=== PATIENT | female | born 1945 | race Caucasian/White ===

== ENCOUNTER 2018-09-16 14:23 | Emergency (ER) | payer MEDICARE, BC ==
--- NOTE | 2018-09-16 14:30 | UC ---
Cardiac HPI - History of Current Complaint Stated Complaint: chest pain Time Seen by Provider: 09/16/18 14:29 PMH/Surg Hx/FS Hx/Imm Hx - Surgical History Surgical History: Unable to Obtain/Confirm Discharge - Discharge Plan Referrals: Farooq Daniel MD [Primary Care Provider] -
[2018-09-16 14:37] VITALS: BP 142/75
[2018-09-16] MEDS ORDERED: Aspirin 81 mg CHEW TAB* 81 MG TAB.CHEW ONE (14:42)
--- NOTE | 2018-09-16 14:44 | UC ---
Cardiac HPI - HPI Summary HPI Summary: Pt presents to report 3 days of ongoing chest pain. Pt states today had radiation to left side of neck, left arm, felt sob with walking and fatigue. mild nause, no vomiting. no cough. no fever, chills, rash. No h.o similar. Pt with h/o htn. No tobacco, no cardiac family hx. No cholesterol. no analgsia taken pt drove self to UC pts medications reviewed this visit - History of Current Complaint Chief Complaint: UCChestPain Stated Complaint: chest pain Time Seen by Provider: 09/16/18 14:29 Hx Obtained From: Patient Onset/Duration: Gradual Onset, Lasting Days - 3 Pain Intensity: 8 - Allergy/Home Medications Allergies/Adverse Reactions: Allergies Allergy/AdvReac Type Severity Reaction Status Date / Time codeine Allergy Unknown Verified 09/16/18 14:38 Reaction Details scallops Allergy Difficulty Verified 09/16/18 15:34 Breathing Home Medications: Home Medications Amlodipine Besylate [Norvasc 10 mg tab] 10 mg PO DAILY 09/16/18 [History Confirmed 09/16/18] PMH/Surg Hx/FS Hx/Imm Hx Previously Healthy: Yes Cardiovascular History: Hypertension - Surgical History Surgical History: Unable to Obtain/Confirm - Family History Known Family History: Positive: Hypertension Negative: Cardiac Disease - Social History Alcohol Use: Occasionally Substance Use Type: None Smoking Status (MU): Never Smoked Tobacco Review of Systems All Other Systems Reviewed And Are Negative: Yes Constitutional: Positive: Negative Respiratory: Positive: Shortness Of Breath Cardiovascular: Positive: Chest Pain Gastrointestinal: Positive: Nausea Physical Exam - Summary Physical Exam Summary: Vital Signs Reviewed: Yes A+Ox3, no distress Eyes: Conjunctiva Clear, GURU. EOM intact and full ENT: Hearing grossly normal TM x 2 clear, mmoist, uvula midline, no exudate, no erythema Neck: Positive: Supple, no bruits Respiratory: Positive: No respiratory distress, No accessory muscle use + CTA throughout no w/r Cardiovascular: RRR nl s1, s2 no m/r CBT <2 sec, no reproducible pain abd soft + BS nt/nd no guarding, no distension Musculoskeletal Exam: JUÁREZ x 4 without difficulty Strength Intact, ROM Intact Neurological: Positive: Alert, + sensation throughout Psychological: Positive: Normal Response To Family Skin: Positive: no rash, no ecchymosis Triage Information Reviewed: Yes Vital Signs: Initial Vital Signs Temp 98.2 F 09/16/18 14:35 Pulse 94 09/16/18 14:35 Resp 24 09/16/18 14:35 BP 142/75 09/16/18 14:35 Pulse Ox 95 09/16/18 14:35 - Assessment/Plan Course Of Treatment: Pt present with chest pressure x 3 days, pain to left arm, left neck today + SOB + nausea. pt denies fevers, chills Pt without h/o similar. No change with activity. d/w pt at length - recommend ED by EMS for further eval - pt in agreement. Will give ASA, hep loc, oxygen. providers inthe eD not available to come to phone for report - given to Meme castro RN - Clinical Impression Provider Diagnosis: Chest pain Discharge - Sign-Out/Discharge Documenting (check all that apply): Patient Departure All imaging exams completed and their final reports reviewed: No Studies - Discharge Plan Condition: Stable Disposition: TRANS HIGHER LVL OF CARE FAC Referrals: Farooq Daniel MD [Primary Care Provider] - - Billing Disposition and Condition Condition: STABLE Disposition: Trans Higher Lvl of Care Fac
[2018-09-17] MEDS ORDERED: Aspirin 81 mg CHEW TAB* 81 MG TAB.CHEW PO ONE (14:41)
== END 2018-09-16 14:55 | disposition short-term general hospital (02) ==
LOC: UCEAST 14:23
DX: R07.9 Chest pain, unspecified (principal); I10 Essential (primary) hypertension; Z88.5 Allergy status to narcotic agent; Z91.013 Allergy to seafood
CPT/HCPCS: 93005; 99213; A9270-GY; G0463

== ENCOUNTER 2018-09-16 15:17 | Emergency (ER) | payer MEDICARE, BC ==
--- NOTE | 2018-09-16 15:33 | ED ---
HPI Chest Pain - HPI Summary HPI Summary: This pt is a 73 y/o female presenting to [facility] [place] from [facility] for chest pain x3 days, worsening today. Pt reports her chest pain began 3 days ago but worsened significantly today. She states she has mid sternal chest pain radiating into her jaw, neck, and arm that is described as pressure and " someone sitting on my chest." She notes that at onset of chest pain pt is at rest. Pt states today with episode of chest pain it was harder to breathe, had SOB, and became diaphoretic. Denies nausea, vomiting, weakness, numbness, tingling. She went to Urgent Care where she was given aspirin and advised to come to the ED via EMS. 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 Prior to taking nitroglycerin pt rated her pain 8/10 in severity and after nitroglycerin she rates her pain 4 or 5 out of 10 in severity. PMHx: HTN, dyslipidemia, UC. Pt states she does not take her high cholesterol medications because it makes her UC worse. Denies cardiac hx. Her last chemical stress test was more than [address] Joyner. - History of Current Complaint Time Seen by Provider: 09/16/18 15:22 Hx Obtained From: Patient Onset/Duration: Started Days Ago - 3, Still Present Timing: Lasting Days - 3 Current Severity: Moderate Pain Intensity: 5 Chest Pain Location: Mid Sternal Chest Pain Radiates: Yes Chest Pain Radiates To:: Arm, Jaw, Neck Character: Pressure/Squeezing - Pressure, "someone sitting on chest" Aggravating Factor(s): Nothing Alleviating Factor(s): Nothing Associated Signs and Symptoms: Positive: Chest Pain, Dizziness, Shortness of Breath, Diaphoresis. Negative: Numbness, Tingling, Weakness, Fever, Chills, Nausea, Vomiting - Allergy/Home Medications Allergies/Adverse Reactions: Allergies Allergy/AdvReac Type Severity Reaction Status Date / Time codeine Allergy Unknown Verified 09/16/18 14:38 Reaction Details scallops Allergy Difficulty Verified 09/16/18 15:34 Breathing Home Medications: Home Medications Docusate Sodium [Colace] 1 cap PO DAILY 09/16/18 [History Confirmed 09/16/18] L.acidoph,Paracasei, B.lactis [Probiotic] 1 cap PO DAILY 09/16/18 [History Confirmed 09/16/18] Mesalamine 4 tab PO QAM 09/16/18 [History Confirmed 09/16/18] PMH/Surg Hx/FS Hx/Imm Hx Cardiovascular History: Reports: Hx Hypercholesterolemia, Hx Hypertension GI History: Reports: Other GI Disorders - Ulcerative Colitis - Cancer History Hx Chemotherapy: No Hx Radiation Therapy: No - Family History Known Family History: Positive: Cardiac Disease - Father with MT in his 70s - Social History Alcohol Use: Occasionally Substance Use Type: Reports: None Smoking Status (MU): Never Smoked Tobacco Review of Systems Positive: Skin Diaphoresis. Negative: Fever, Chills Positive: Chest Pain Positive: Shortness Of Breath Negative: Vomiting, Nausea Neurological: Other - POSITIVE: dizziness Negative: Weakness, Paresthesia, Numbness All Other Systems Reviewed And Are Negative: Yes Physical Exam - Summary Physical Exam Summary: VITAL SIGNS: Reviewed. GENERAL: Patient is a well-developed and nourished female who is lying comfortable in the stretcher. Patient is not in any acute respiratory distress. HEAD AND FACE: No signs of trauma. No ecchymosis, hematomas or skull depressions. No sinus tenderness. EYES: PERRLA, EOMI x 2, No injected conjunctiva, no nystagmus. EARS: Hearing grossly intact. Ear canals and tympanic membranes are within normal limits. MOUTH: Oropharynx within normal limits. NECK: Supple, trachea is midline, no adenopathy, no JVD, no carotid bruit, no c- spine tenderness, neck with full ROM. CHEST: Symmetric, no tenderness at palpation LUNGS: Clear to auscultation bilaterally. No wheezing or crackles. CVS: Regular rate and rhythm, S1 and S2 present, no murmurs or gallops appreciated. ABDOMEN: Soft, non-tender. No signs of distention. No rebound, no guarding, and no masses palpated. Bowel sounds are normal. EXTREMITIES: FROM in all major joints, no edema, no cyanosis or clubbing. NEURO: Alert and oriented x 3. No acute neurological deficits. Speech is normal and follows commands. SKIN: Dry and warm Triage Information Reviewed: Yes Vital Signs Reviewed: Yes Diagnostics - Laboratory Result Diagrams: 09/16/18 16:07 09/16/18 16:07 Lab Statement: Any lab studies that have been ordered have been reviewed, and results considered in the medical decision making process. - Radiology Chest XR Radiology Interpretation Completed By: Radiologist Summary of Radiographic Findings: IMPRESSION: No active cardiopulmonary disease is noted. Dr. Foster has reviewed this report. - EKG 15:45 Cardiac Rate: NL - at 81 bpm EKG Rhythm: Sinus Rhythm EKG Comparison: No Significant Change - from prior EKG on 09/16/18 Summary of EKG Findings: No ST elevations. Re-Evaluation - Re-Evaluation First Eval Re-Evaluation Time: 18:35 Comment: Pt does not want to be admitted at this time. She would like to sign against medical advice. Chest Pain Course/Dx - Course Assessment/Plan: This pt is a 73 y/o female presenting to [facility] via EMS from [facility] for chest pain x3 days, worsening today. Pt reports her chest pain began 3 days ago but worsened significantly today. She states she has mid sternal chest pain radiating into her jaw, neck, and arm that is described as pressure and "someone sitting on my chest." She notes that at onset of chest pain pt is at rest. Pt states today with episode of chest pain it was harder to breathe, had SOB, and became diaphoretic. Denies nausea, vomiting, weakness, numbness, tingling. She went to Urgent Care where she was given aspirin and advised to come to the ED via EMS. 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 Prior to taking nitroglycerin pt rated her pain 8/10 in severity and after nitroglycerin she rates her pain 4 or 5 out of 10 in severity. PMHx: HTN, dyslipidemia, UC. Pt states she does not take her high cholesterol medications because it makes her UC worse. Denies cardiac hx. Her last chemical stress test was more than [address] Joyner. Blood work without any significant abnormality,. EKG shows normal sinus rhythm with no ST elevation. Chest x-ray shows no acute pathology. In the ambulance transfer to the ED the patient was given nitroglycerin and the patients symptoms have significantly improved. Because of her comorbidities I discussed my physical exam and findings with the patient and the need for admission. She agrees. I discussed my physical exam and findings with Dr. Boogie, from the hospitalist services, who accepted the patient for admission to rule out acute coronary syndrome. Patient is hemodynamically stable, alert oriented 3. Right before the patient was admitted, the patient changed her mind of her stay in the hospital since she doesn't have anybody to do the peritoneal dialysis for her . Initially they had a nurse who was transferred to do the peritoneal dialysis however she reported that she is not trained therefore she has no one to do it. She will be signing AGAINST MEDICAL ADVICE. The patient's daughter agrees with this decision. I extensively discussed with the patient the benefits and risk of leaving AMA. I also discussed the alternatives to leaving AMA, however, the patient still insists to leave the hospital AMA. The patient is clinically sober, free from distracting injury, appears to have intact insight and judgment and reason and in my opinion has the capacity to make decisions. Patient has full capacity and is cognitively intact. The patient presents with ACS symptoms, I have explained that I am concerned with those symptoms and may represent ACS. The patient verbalizes the understanding of my concerns. I have also explained the results of the labs even though they are normal. The primary nurse and the charge nurse also strongly recommended that the patient should not leave AMA. Patient understands the risk of leaving AMA, which includes but is not restricted to . Patient signed the AMA form. Patient was also advised to return to ED if she changes her mind or if the symptoms worsen or other symptoms appear. Patient understands and agrees. Again, I discussed all the findings and test results with the patient. Patient was instructed to return to the emergency room immediately if any of the symptoms return or worsens. Plan of care was discussed with the patient and she understands and agrees. All questions were answered at patient satisfaction. There were no further complaints or concerns. Patient signed AMA and she was discharged AMA. - Chest Pain Differential Diagnosis/HQI/PQRI: Acute MT, ACS, Angina, CHF, Chest Wall, GI Disease, Lower Respiratory Infection, Pulmonary Edema - Diagnoses Provider Diagnoses: Chest pain - Provider Notifications Discussed Care Of Patient With: Suellen Boogie - hospitalist Time Discussed With Above Provider: 17:06 Instructed by Provider To: Admit As Inpatient Discharge - Sign-Out/Discharge Documenting (check all that apply): Patient Departure - Admit to [facility] - Discharge Plan Condition: Stable Disposition: AGAINST MEDICAL ADVICE Patient Education Materials: Chest Pain (ED) Referrals: Farooq Daniel MD [Primary Care Provider] - Vishal Banuelos MD [Medical Doctor] - Additional Instructions: PLEASE FOLLOW UP WITH DR. BANUELOS, PUBLICITY AGENT. RETURN TO THE ED FOR ANY NEW OR WORSENING SYMPTOMS. - Billing Disposition and Condition Condition: STABLE Disposition: Against Medical Advice - Attestation Statements Document Initiated by Jessicaibe: Yes Documenting Scribe: Renee Saxena Provider For Whom Scribe is Documenting (Include Credential): Wisam Foster MD Scribe Attestation: Renee Novak, scribed for Wisam Foster MD on 09/16/18 at 1909. Scribe Documentation Reviewed: Yes Provider Attestation: The documentation as recorded by the Renee hernandez accurately reflects the service I personally performed and the decisions made by , Wisam Foster MD Status of Scribe Document: Viewed
[2018-09-16 16:14] LABS: ABS Basophils 0 10^3/ul (0-0.2); ABS Eosinophils 0.1 10^3/ul (0-0.6); ABS Lymphocytes 1.4 10^3/ul (1.0-4.8); ABS Monocytes 0.7 10^3/ul (0-0.8); ABS Neutrophils 3.4 10^3/ul (1.5-7.7); ABS Nucleated RBC 0 10^3/ul; Eosinophil % 2.2 %; Hematocrit 39 % (35-47); Hemoglobin 13.2 g/dl (12.0-16.0); Lymphocyte % 25.1 %; Mean Corpuscular HGB Conc 34 g/dl (31-36); Mean Corpuscular Hemoglobin 32 pg (27-31); Mean Corpuscular Volume 92 fL (80-97); Mean Platelet Volume 9.1 fL (7.4-10.4); Nucleated Red Blood Cells % 0.1; Platelet Count 224 10^3/ul (150-450); Red Cell Distribution Width 13 % (10.5-15); White Blood Count 5.6 10^3/ul (3.5-10.8)
[2018-09-16 16:31] LABS: Albumin/Globulin Ratio 1.7 (1-3); BUN/Creatinine Ratio 20.8 (8-20); Calcium 9.1 mg/dL (8.6-10.3); EGFR African American 88.9 (>60); EGFR Non-African American 73.5 (>60); Globulin 2.4 g/dL (2-4); Magnesium 2.1 mg/dL (1.9-2.7); Potassium 4.1 mmol/L (3.5-5.0); Total Bilirubin 0.6 mg/dL (0.2-1.0); Total Protein 6.4 g/dL (6.4-8.9)
[2018-09-16 16:33] LABS: Troponin I 0.01 ng/mL (<0.04)
[2018-09-16 16:49] LABS: TSH (Thyroid Stimulating Horm) 1.6 mcIU/mL (0.34-5.60)
[2018-09-16 18:59] VITALS: BP 144/73
--- NOTE | 2018-09-17 07:09 | CONS ---
[facility] MEDICINE CONSULTATION REPORT: DATE OF CONSULT: 09/16/18 PROVIDER: Maxine Burrell NP. ATTENDING PHYSICIAN: Dr. Foster EMERGENCY ROOM CONSULTING PHYSICIAN: Suellen oBogie DO (dictated by Maxine Burrell NP). REASON FOR CONSULT: Chest pain. HISTORY OF PRESENT ILLNESS: Ms. Barton is a 73-year-old female with a past medical history significant for hypertension, ulcerative colitis who reports to the emergency room with chest pain and shortness of breath. The patient reports that she started developing chest pain approximately 3 days ago; the pain radiated between her shoulder, around her abdomen to her left upper arm and left neck. She reports the pain as being pressure and sharp. She does also reports this is worse with deep breath. This morning with the development of the chest pain, she was diaphoretic and developed shortness of breath today. Due to these symptoms, the patient presented to the emergency room for further evaluation. She does report that she has had cough x1 month that has been viral and has been progressively improving over the past month. She denies any recent fever or anorexia. She does report chest pain, denies any edema, does report cough, denies any hemoptysis. She does report shortness of breath, denies any nausea, vomiting and diarrhea. She does report diaphoresis with her chest pain. Denies any abdominal pain. Denies any hematuria or dysuria. She denies any focal weakness or sensory loss. Denies any visual complaints, dysphagia. She does report chronic joint aches. Denies any rashes , lesions or open sores. Denies any psychosis or anxiety. Due to her complaint of chest pain and history and current symptoms, we were asked to see and evaluate her for admission. PAST MEDICAL HISTORY: Significant for hypertension and ulcerative colitis. PAST SURGICAL HISTORY: 1. Bilateral knee replacements. 2. Right toe surgery. 3. Tonsillectomy. 4. Tubal ligation. HOME MEDICATIONS: 1. Norvasc 10 mg p.o. daily. 2. Docusate 1 cap p.o. daily. 3. Mesalamine 4 tabs p.o. q.a.m. 4. Probiotic 1 cap p.o. daily. 5. Turmeric daily. ALLERGIES: She is allergic to CODEINE, SCALLOPS, and STATINS. FAMILY HISTORY: Father with a history of MO at age 72, grandfather MO at age 75. Father with history of diabetes, stomach and prostate cancer were prevalent in her family. SOCIAL HISTORY: She quit smoking approximately 30 years ago. Prior to that, she smoked 3 packs a day for 27 years. She does report occasional alcohol use. Denies any illicit drug use. She is . She lives with her . Surrogate decision maker in the event she is unable to make her own decision is her daughter, Olya. She is a full code. REVIEW OF SYSTEMS: General: There was no fever, no unintended weight loss. She does report chest pain associated with shortness of breath that radiates to her back, left shoulder and left upper arm and left neck. She denies any nausea , vomiting, or diarrhea. Denies any abdominal pain. Denies any gross hematuria or dysuria. Denies any focal weakness or sensory loss. Denies any visual complaints, dysphagia or arthralgias. She does report chronic joint aches. Denies any rashes or lesions psychosis or anxiety. PHYSICAL EXAM: Vital Signs: Blood pressure 155/75, heart rate 86, respirations 16, O2 saturation 96%, temperature was 98.5. General: Ms. Barton is a 73-year-old female. She is sitting on the stretcher in the emergency room. She is alert and oriented x3. She does not appear to be in any acute distress. HEENT: Head is atraumatic and normocephalic. Eyes: EOMs are intact. Sclerae anicteric and not pale. Oral mucosa appears to be moist. Neck is supple. Lungs are clear to auscultation bilaterally. No wheezes, rales or rhonchi. Cardiac: S1 and S2. Regular rate and rhythm. No murmurs rubs or gallops. Abdomen is obese, round, soft and nontender. Bowel sounds are present x4. Extremities: Pedal pulses are +2 bilaterally. There is no lower extremity edema. She is able to move all four extremities and 5/5 strength. Neurologic, she is awake, alert, oriented x3. Speech is clear. Thought process is intact. There is no gross focal deficit. Skin is intact. LABORATORY DATA AND DIAGNOSTIC STUDIES: WBCs were 5.6, RBCs 4.20, hemoglobin 13.2, hematocrit was 39. Platelet count was 224. Sodium 141, potassium 4.1, chloride 109, carbon dioxide was 27, anion gap of 5, BUN was 16, creatinine 0.77 , glucose was 95. Lactic acid was 0.8. Calcium 9.1, magnesium 2.1, bilirubin 0.60, ASTs were 12, ALT were 11, alkaline phosphatase 56. CK was 56. Troponins 0.01, repeat troponin was 0.00. BNP was 30. TSH was 1.6. Chest x-ray: No active cardiopulmonary disease. Electrocardiogram: Showed sinus rhythm at a rate of 81. There are T-wave inversions in lead III. IMPRESSION AND PLAN: Ms. Barton is a 73-year-old female who presented to the emergency room with complaints of shortness of breath and chest pain that radiated to her left back and left shoulder. Due to the concerns for acute coronary syndrome, we were asked to see and evaluate the patient. 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 I did recommend to the patient that she stay for further evaluation and cardiac stress test for further evaluation of her chest pain and shortness of breath. At this time, the patient wishes to leave and does not want to stay. 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 Banuelos in the past for further evaluation of her chest pain and shortness of breath. I did encourage the patient to be admitted to the hospital, but again, she continues to refuse to be admitted to the hospital at this time. I did discuss the patient's refusal for admission with Dr. Foster, who will have the patient sign out against medical advice. At this time again, we would recommend admitting the patient for further cardiac workup as an inpatient, but the patient has declined these services and this has been relayed to Dr. Foster who will sign the patient on AMA. TIME SPENT: Time spent on this consultation was 45 minutes; more than half that time was spent reviewing the events leading thus far to her hospitalization , performing physical exam and reviewing my recommended plan of care. I have discussed this with my attending Dr. Suellen Boogie and Dr. Foster, and the emergency room was made aware of the patient's refusal to be admitted to the hospital. The patient's care was turned back over to the emergency room doctor, Dr. Foster, for further management. MAXINE BURRELL, COMPRESSOR OPERATOR ADJUSTER [id number]/[id number] #: [id number] MTDD
== END 2018-09-16 18:58 | disposition left against medical advice (07) ==
LOC: ED 15:17
DX: R07.9 Chest pain, unspecified (principal); I10 Essential (primary) hypertension; K51.90 Ulcerative colitis, unspecified, without complications; Z88.5 Allergy status to narcotic agent; Z91.013 Allergy to seafood; Z87.891 Personal history of nicotine dependence
CPT/HCPCS: 36415; 71045; 80053; 82550; 82553; 83605; 83735; 83880; 84443; 84484; 85025; 93005; 99284

== ENCOUNTER → 2018-11-08 08:15 | Day surgery (SDC) | payer MEDICARE, BC ==
[~2018-11-08 08:15] MED LIST: Acetaminophen TAB* 325 MG PO PRN; Diazepam TAB(*) 5 MG ONE; Heparin 2 UNITS/ML IVPREMIX* 1,000 ML IV ONE; Heparin 2 UNITS/ML IVPREMIX* 2,000 ML IV ONE; Heparin(*) 1000 UNIT/ML 10 ML VIAL CATH LAB IV ONE; Iohexol 350 (CONTRAST) 200 ML MDV IV ONE; Lidocaine 1% INJ* 10 MG/ML 30 ML SDV ONE; Midazolam* 1 MG/ML 10 ML VIAL (10 MG) ONE; NS 0.9% 1000 ML** 1,000 ML IV SCH; VERAPAMIL 2.5 MG/ML 2 ML VIAL ** 5 mg/2 ml ONE; diPHENhydraMINE PO* 25 MG ONE; fentaNYL* 50 MCG/ML 2 ML VIAL (100 MCG VIAL) ONE; nitroGLYCERIN DRIP* 25,000 MCG/250 ML BTL ONE
[2018-11-08 15:40] VITALS: BP 119/68
--- NOTE | 2018-11-08 20:23 | CATH ---
CC: Dr. Farooq Daniel * CARDIAC CATHETERIZATION REPORT: DATE OF PROCEDURE: 11/08/18 - [facility] CATH PROCEDURE: Included coronary angiography, left heart catheterization, left ventriculogram. INDICATION: Chest pain, abnormal stress test. The patient is a 73-year-old female, who has been having episodes of chest pain at rest that radiate up into her jaw. The patient underwent an exercise nuclear stress test and an echocardiogram. Her stress test, she exercised for 4 minutes. She did have chest pain. She did have ST segment depression. Her nuclear images demonstrate normal perfusion of the myocardium. Her echocardiogram did show mildly reduced LV systolic function, ejection fraction of 45% with anterior wall hypokinesis. Cardiac catheterization was recommended. DESCRIPTION OF PROCEDURE: The patient was brought to the cardiac catheterization lab in a fasting state. Informed consent had been obtained prior to the procedure. All labs had been reviewed. The patient was placed supine on the catheterization table. Her right radial area was prepped and draped in the usual fashion. 1% lidocaine was used for local anesthesia. The radial artery was entered by a Seldinger technique and a 6-Belgian hydrophilic sheath was placed and infusion of heparin, nitroglycerin and verapamil was infused through the catheter. The catheter and guide-wire were advanced all the way up to the innominate artery and could not be passed after that. There was significant tortuosity of the innominate artery. A hand injection of the artery showed severe tortuosity. At that time, the radial approach was abandoned and the patient was changed over to the femoral approach. The femoral artery was entered by a Seldinger technique and a 6-Belgian sheath introducer was placed. The patient underwent left ventriculogram, coronary angiography using a 6-Belgian pigtail catheter, 6-Belgian JL4 catheter, and a 6- Belgian JR4 catheter. At the end of the procedure, all sheaths and catheters were removed. The patient tolerated the procedure well and no complications. A total of 125 cc of Omnipaque dye was used. A total of 6.4 minutes of fluoro time was used. MYNX closure device used at end of case FINDINGS: HEMODYNAMICS: Central aortic blood pressure 125/59 with a mean of 88. Left ventricular pressure 122/11 with an end-diastolic pressure of 16. LEFT VENTRICULOGRAM: Left ventricle was normal in size and systolic function. Estimated ejection fraction 60%. There were no focal wall motion abnormalities. There was no mitral regurgitation. Aortic valve and ascending aorta were normal. CORONARY ARTERIES: 1. Left main artery: The left main was normal in size. It bifurcated into the LAD and circumflex. There was no evidence of stenosis. 2. Left anterior descending artery: The LAD was normal in size. It gave off 2 diagonal vessels. There was no evidence of stenosis. 3. Left circumflex artery: The circumflex artery was normal in size. It gave off 2 obtuse marginal branches. There was no evidence of stenosis. 4. Right coronary artery: The RCA was a dominant vessel giving off the PDA and a posterolateral branch. There was no evidence of stenosis. At the end, an injection of the innominate artery from the arch shows that the innominate artery was patent, but had severe tortuosity. IMPRESSION: 1. Normal LV size and systolic function. 2. Normal coronary arteries. 3. Mynx closure of the femoral artery. RECOMMENDATION: The patient will continue on medical therapy. [id number]/[facility] #: [id number] JULIET
== END | disposition home or self-care (01) ==
LOC: CHICATH 08:15
PROVIDERS: ATTEND Specialist
DX: R94.39 Abnormal result of other cardiovascular function study (principal); R07.9 Chest pain, unspecified; R68.84 Jaw pain; R94.31 Abnormal electrocardiogram [ECG] [EKG]; I10 Essential (primary) hypertension; E78.00 Pure hypercholesterolemia, unspecified; K51.90 Ulcerative colitis, unspecified, without complications; Z87.891 Personal history of nicotine dependence
CPT/HCPCS: 93458; 99156; 99157; A4467; A9270-GY; C1760; C1887; J1644; J2250; J3010

== ENCOUNTER 2023-08-27 02:59 | Inpatient (IN) ==
[2023-08-27] MEDS ORDERED: Morphine 4 MG/ML VIAL (1 ml) IV ONE ×2 (06:47→10:58)
[2023-08-27] MEDS ORDERED: Ondansetron 4 mg VIAL 2 MG/ML 2 ml VIAL IV ONE (06:47)
[2023-08-27] MEDS ORDERED: Lactated Ringers 1000 ml BAG 1,000 ML IV ONE ×2 (06:47→07:58)
[2023-08-27] MEDS ORDERED: Acetaminophen IV 1 GM/100ML 1,000 MG/100 ML BAG IV ONE ×2 (07:35→14:23)
[2023-08-27 07:46] LABS: ABS Lymphocytes 0.7 10^3/uL (1.0-4.8); ABS Monocytes 1.5 10^3/uL (0.0-0.9); ABS Neutrophils 13.3 10^3/uL (1.5-7.6); ABS Nucleated RBC 0.01 10^3/ul; Hematocrit 41.1 % (35-45); Hemoglobin 13.7 g/dL (11.5-14.3); Lymphocyte % 4.2 %; Mean Corpuscular Hemoglobin 30.4 pg (27-33); Mean Corpuscular Hgb Conc 33.2 g/dL (31-36); Mean Corpuscular Volume 91.5 fL (80-97); Mean Platelet Volume 9.7 fL (7.5-11.2); Nucleated Red Blood Cells % 0.1 %/100WBC (0.0-0.8); Platelet Count 267 10^3/uL (150-450); Red Blood Count 4.49 10^6/uL (3.63-4.92); Red Cell Distribution Width 13.4 % (12-17); White Blood Count 15.5 10^3/uL (3.8-11.8)
[2023-08-27] MEDS ORDERED: LACTATED RINGERS IV ONE (07:58)
[2023-08-27] MEDS ORDERED: Piperacillin/Tazobac 3.375 BAG 3.375 GM/100 ML BAG IV ONE (07:59)
[2023-08-27 08:05] LABS: ALT 15 U/L (7-52); AST 14 U/L (13-39); Albumin 4.1 g/dL (3.2-5.2); Albumin/Globulin Ratio 1.5 (1-3); Alkaline Phosphatase 65 U/L (35-149); Anion Gap 9 mmol/L (2-16); Blood Urea Nitrogen 13 mg/dL (6-24); CO2 Carbon Dioxide 27 mmol/L (22-32); Calcium 9.4 mg/dL (8.6-10.3); Chloride 103 mmol/L (101-111); Creatinine, Serum 0.93 mg/dL (0.51-0.95); Globulin 2.8 g/dL (2-4); Glucose 159 mg/dL (70-100); Lipase < 10 U/L (11.0-82.0); Potassium 3.9 mmol/L (3.5-5.0); Sodium 139 mmol/L (135-145); Total Bilirubin 1.2 mg/dL (0.2-1.0); Total Protein 6.9 g/dL (6.4-8.9); eGFR CKD-EPI 62.9 (>60)
[2023-08-27] MEDS ORDERED: Iohexol 350 (CONTRAST) 500 ML MDV IV ONE (08:27)
[2023-08-27] MEDS ORDERED: NS 0.9% 1000 ml BAG 1,000 ML IV SCH (10:00)
[2023-08-27] MEDS ORDERED: Morphine 10 MG/ML VIAL (1 ml) ONE (11:04)
[2023-08-27] MEDS ORDERED: Lidocaine 1% w EPI 1:200,000 SDV 30 ML VIAL ONE (11:46)
[2023-08-27] MEDS ORDERED: Bupivacaine 0.25% SDV 30 ML ONE (11:46)
[2023-08-27] MEDS ORDERED: fentaNYL 100 mcg/2 ml 50 MCG/ML VIAL ONE ×2 (11:56→14:27)
[2023-08-27] MEDS ORDERED: Midazolam 2 mg/2 ml VIAL 1 mg/ml 2 ml VIAL (2 mg) ONE (11:56)
[2023-08-27] MEDS ORDERED: HYDROmorphone 0.5 MG/0.5 ML SYRINGE ONE ×2 (12:50→12:55)
[2023-08-27] MEDS ORDERED: Ondansetron 4 mg VIAL 2 MG/ML 2 ml VIAL ONE (13:16)
[2023-08-27] MEDS ORDERED: Phenylephrine 40 mcg/mL 10mL (400mcg) SYRINGE ONE (13:16)
[2023-08-27] MEDS ORDERED: Dexamethasone IV 4 MG/ML VIAL 1 ml VIAL ONE (13:16)
[2023-08-27] MEDS ORDERED: Rocuronium 50 mg VIAL 10 mg/ml 5 ml VIAL (50 mg) ONE (13:16)
[2023-08-27] MEDS ORDERED: Metoclopramide 5 MG/ML VIAL (10 mg) IV PRN (14:16)
[2023-08-27] MEDS ORDERED: Naloxone 0.4 mg VIAL 0.4 mg/ml 1 ml VIAL IV PRN (14:16)
[2023-08-27] MEDS ORDERED: HYDROmorphone 1 MG/1 ML SYRINGE IV PRN (14:16)
[2023-08-27] MEDS ORDERED: Metoclopramide 5 MG/ML VIAL (10 mg) ONE (14:18)
[2023-08-27] MEDS: Acetaminophen IV 1 GM/100ML 1,000 MG/100 ML BAG IV SCH ×2 (14:25→23:14)
[2023-08-27] MEDS: fentaNYL 100 mcg/2 ml 50 MCG/ML VIAL IV PRN ×2 (14:30→14:56)
[2023-08-27] MEDS: Piperacillin/Tazobac 3.375 BAG 3.375 GM/100 ML BAG IV SCH (18:50)
[2023-08-27] MEDS: NS 0.9% 1000 ml BAG 1,000 ML IV SCH (18:51)
[2023-08-28] MEDS: Piperacillin/Tazobac 3.375 BAG 3.375 GM/100 ML BAG IV SCH ×3 (02:08→17:48)
[2023-08-28 06:04] LABS: ABS Lymphocytes 0.8 10^3/uL (1.0-4.8); ABS Monocytes 1.1 10^3/uL (0.0-0.9); ABS Neutrophils 11.3 10^3/uL (1.5-7.6); Hematocrit 34.3 % (35-45); Hemoglobin 11.4 g/dL (11.5-14.3); Lymphocyte % 6.3 %; Mean Corpuscular Hemoglobin 30.7 pg (27-33); Mean Corpuscular Hgb Conc 33.3 g/dL (31-36); Mean Corpuscular Volume 92.2 fL (80-97); Mean Platelet Volume 9.4 fL (7.5-11.2); Platelet Count 221 10^3/uL (150-450); Red Blood Count 3.72 10^6/uL (3.63-4.92); Red Cell Distribution Width 13.3 % (12-17); White Blood Count 13.2 10^3/uL (3.8-11.8)
[2023-08-28 06:27] LABS: Calcium 8.4 mg/dL (8.6-10.3); Creatinine, Serum 0.99 mg/dL (0.51-0.95); Potassium 4.5 mmol/L (3.5-5.0); eGFR CKD-EPI 58.4 (>60)
[2023-08-28] MEDS: Acetaminophen IV 1 GM/100ML 1,000 MG/100 ML BAG IV SCH (07:50)
[2023-08-28] MEDS: NS 0.9% 1000 ml BAG 1,000 ML IV SCH ×2 (09:46→20:26)
[2023-08-28] MEDS: HYDROmorphone 1 MG/1 ML SYRINGE IV SLOW PU PRN (20:16)
[2023-08-28] MEDS: Ondansetron 4 mg VIAL 2 MG/ML 2 ml VIAL IV PRN (20:17)
[2023-08-29] MEDS: HYDROmorphone 1 MG/1 ML SYRINGE IV SLOW PU PRN (00:43)
[2023-08-29] MEDS: Piperacillin/Tazobac 3.375 BAG 3.375 GM/100 ML BAG IV SCH ×3 (02:14→17:40)
[2023-08-29] MEDS: NS 0.9% 1000 ml BAG 1,000 ML IV SCH ×2 (05:50→16:04)
[2023-08-29] MEDS: Calcium Carb (TUMS) 500 mg CHEW TAB PO PRN (20:12)
[2023-08-30] MEDS: Piperacillin/Tazobac 3.375 BAG 3.375 GM/100 ML BAG IV SCH ×3 (01:45→18:02)
[2023-08-30] MEDS: Calcium Carb (TUMS) 500 mg CHEW TAB PO PRN (01:48)
[2023-08-30] MEDS: NS 0.9% 1000 ml BAG 1,000 ML IV SCH (01:52)
[2023-08-30 08:47] LABS: ABS Eosinophils 0.3 10^3/uL (0.0-0.5); ABS Lymphocytes 1.1 10^3/uL (1.0-4.8); ABS Neutrophils 5.5 10^3/uL (1.5-7.6); Eosinophil % 3.6 %; Hematocrit 31.9 % (35-45); Hemoglobin 10.9 g/dL (11.5-14.3); Lymphocyte % 14.5 %; Mean Corpuscular Hemoglobin 31.4 pg (27-33); Mean Corpuscular Hgb Conc 34.2 g/dL (31-36); Mean Corpuscular Volume 91.8 fL (80-97); Platelet Count 233 10^3/uL (150-450); Red Blood Count 3.47 10^6/uL (3.63-4.92); Red Cell Distribution Width 13.4 % (12-17); White Blood Count 7.9 10^3/uL (3.8-11.8)
[2023-08-30 09:10] LABS: Calcium 8.3 mg/dL (8.6-10.3); Creatinine, Serum 0.76 mg/dL (0.51-0.95); Potassium 3.5 mmol/L (3.5-5.0); eGFR CKD-EPI 80.2 (>60)
[2023-08-30] MEDS: Ondansetron 4 mg VIAL 2 MG/ML 2 ml VIAL IV PRN (16:58)
[2023-08-31] MEDS: Piperacillin/Tazobac 3.375 BAG 3.375 GM/100 ML BAG IV SCH ×2 (02:44→12:12)
[2023-08-31] MEDS ORDERED: HYDROmorphone 0.5 MG/0.5 ML SYRINGE IV SLOW PU PRN (13:40)
[2023-08-31] MEDS: Calcium Carb (TUMS) 500 mg CHEW TAB PO PRN (13:52)
[2023-08-31 14:41] VITALS: BP 146/68
== END 2023-08-31 15:20 | disposition home or self-care (01) | DRG 399 ==
LOC: EDHOLD 02:59 → ED 02:59 → AA 10:09 → SSU 17:57
PROVIDERS: ADMIT Surgery; ATTEND Surgery

== ENCOUNTER 2023-10-30 10:08 | Inpatient (IN) ==
[2023-10-30 10:55] LABS: ABS Eosinophils 0.2 10^3/uL (0.0-0.5); ABS Lymphocytes 1.3 10^3/uL (1.0-4.8); ABS Monocytes 1.1 10^3/uL (0.0-0.9); ABS Neutrophils 5.8 10^3/uL (1.5-7.6); Eosinophil % 2.1 %; Hematocrit 37.9 % (35-45); Hemoglobin 12.6 g/dL (11.5-14.3); Lymphocyte % 15.6 %; Mean Corpuscular Hgb Conc 33.4 g/dL (31-36); Mean Corpuscular Volume 89.8 fL (80-97); Mean Platelet Volume 9.8 fL (7.5-11.2); Platelet Count 312 10^3/uL (150-450); Red Blood Count 4.22 10^6/uL (3.63-4.92); Red Cell Distribution Width 13.4 % (12-17); White Blood Count 8.4 10^3/uL (3.8-11.8)
[2023-10-30 11:13] LABS: ALT 13 U/L (7-52); Albumin 3.8 g/dL (3.2-5.2); Albumin/Globulin Ratio 1.1 (1-3); Alkaline Phosphatase 66 U/L (35-149); Anion Gap 10 mmol/L (2-16); Blood Urea Nitrogen 14 mg/dL (6-24); CO2 Carbon Dioxide 26 mmol/L (22-32); Calcium 9.5 mg/dL (8.6-10.3); Chloride 102 mmol/L (101-111); Creatinine, Serum 0.82 mg/dL (0.51-0.95); Globulin 3.6 g/dL (2-4); Glucose 211 mg/dL (70-100); Lipase 10 U/L (11.0-82.0); Sodium 138 mmol/L (135-145); Total Bilirubin 0.5 mg/dL (0.2-1.0); Total Protein 7.4 g/dL (6.4-8.9); eGFR CKD-EPI 73.2 (>60)
[2023-10-30 11:52] LABS: Urine Appearance Cloudy; Urine Bilirubin Negative (Negative); Urine Blood 1+ (Negative); Urine Color Amber; Urine Glucose Negative (Negative); Urine Ketones Negative (Negative); Urine Nitrite Negative (Negative); Urine Protein 1+(30 mg/dL) (Negative); Urine Specific Gravity 1.031 (1.002-1.030); Urine Urobilinogen Negative (Negative)
[2023-10-30 12:27] LABS: Urine Bacteria Absent (Absent); Urine Red Blood Cell 1+(3-5/hpf) (Absent); Urine Squamous Epithelial Cell Present (Absent); Urine White Blood Cell Trace(0-5/hpf) (Absent)
[2023-10-30] MEDS: Iohexol 350 (CONTRAST) 500 ML MDV IV ONE (12:28)
[2023-10-30 13:06] LABS: Potassium Redraw 4.1 mmol/L (3.5-5.0)
[2023-10-30] MEDS: cefTRIAXone 1 gm/50 mL D5W 1 GM/50 ML BAG IV ONE (14:39)
[2023-10-30] MEDS: metroNIDAZOLE IV 500 MG/100ML 500 MG/100 ML BAG IVPB ONE (15:36)
[2023-10-30] MEDS ORDERED: Ondansetron 4 mg VIAL 2 MG/ML 2 ml VIAL IV PRN (15:59)
[2023-10-30] MEDS: Enoxaparin 40 MG/0.4 ML SYR SUBCUT SCH (16:35)
[2023-10-30 17:21] LABS: C Reactive Protein 99.91 mg/L (<8.01)
[2023-10-30] MEDS: metroNIDAZOLE IV 500 MG/100ML 500 MG/100 ML BAG IVPB SCH (22:22)
[2023-10-30] MEDS: Cyclosporine 0.05% OPHTH (NF) 0.4 ML VIAL BOTH EYES SCH (23:31)
[2023-10-30] MEDS: Benzocaine/Menthol LOZ PO PRN (23:52)
[2023-10-31 06:20] LABS: ABS Basophils 0.1 10^3/uL (0.0-0.1); ABS Eosinophils 0.3 10^3/uL (0.0-0.5); ABS Lymphocytes 1.3 10^3/uL (1.0-4.8); ABS Monocytes 1.1 10^3/uL (0.0-0.9); ABS Neutrophils 5.3 10^3/uL (1.5-7.6); Eosinophil % 3.3 %; Hematocrit 33.3 % (35-45); Hemoglobin 11.3 g/dL (11.5-14.3); Lymphocyte % 16.4 %; Mean Corpuscular Hemoglobin 30.2 pg (27-33); Mean Corpuscular Hgb Conc 33.9 g/dL (31-36); Mean Platelet Volume 9.7 fL (7.5-11.2); Platelet Count 312 10^3/uL (150-450); Red Blood Count 3.74 10^6/uL (3.63-4.92); Red Cell Distribution Width 13.4 % (12-17); White Blood Count 8.1 10^3/uL (3.8-11.8)
[2023-10-31 06:31] LABS: Albumin 3.5 g/dL (3.2-5.2); Albumin/Globulin Ratio 1.1 (1-3); Calcium 9.3 mg/dL (8.6-10.3); Creatinine, Serum 0.73 mg/dL (0.51-0.95); Globulin 3.2 g/dL (2-4); Potassium 4.1 mmol/L (3.5-5.0); Total Bilirubin 0.5 mg/dL (0.2-1.0); Total Protein 6.7 g/dL (6.4-8.9); eGFR CKD-EPI 84.1 (>60)
[2023-10-31] MEDS: MESALAMINE 1.2 GM PO SCH ×2 (14:48→15:46)
[2023-10-31] MEDS: cefTRIAXone 1 gm/50 mL D5W 1 GM/50 ML BAG IV SCH (15:11)
[2023-10-31] MEDS: BENZONATATE 200 MG PO PRN (15:47)
[2023-11-01 08:31] LABS: INR 1.32 (0.83-1.13)
[2023-11-01] MEDS: fentaNYL 100 mcg/2 ml 50 MCG/ML VIAL ONE ×2 (12:38)
[2023-11-01] MEDS: Enoxaparin 40 MG/0.4 ML SYR SUBCUT SCH (18:03)
[2023-11-02 06:32] LABS: ABS Eosinophils 0.1 10^3/uL (0.0-0.5); ABS Lymphocytes 0.9 10^3/uL (1.0-4.8); ABS Monocytes 1.4 10^3/uL (0.0-0.9); ABS Neutrophils 8.3 10^3/uL (1.5-7.6); ABS Nucleated RBC 0.01 10^3/ul; Hematocrit 34.1 % (35-45); Hemoglobin 11.6 g/dL (11.5-14.3); Lymphocyte % 8.4 %; Mean Corpuscular Hemoglobin 30.3 pg (27-33); Mean Corpuscular Volume 89.1 fL (80-97); Mean Platelet Volume 10.2 fL (7.5-11.2); Nucleated Red Blood Cells % 0.1 %/100WBC (0.0-0.8); Platelet Count 317 10^3/uL (150-450); Red Blood Count 3.83 10^6/uL (3.63-4.92); Red Cell Distribution Width 13.4 % (12-17); White Blood Count 10.7 10^3/uL (3.8-11.8)
[2023-11-02 06:50] LABS: Calcium 9.1 mg/dL (8.6-10.3); Creatinine, Serum 0.77 mg/dL (0.51-0.95); Potassium 4.3 mmol/L (3.5-5.0); eGFR CKD-EPI 78.9 (>60)
[2023-11-02] MEDS ORDERED: Magnesium Hydroxide LIQ 30 ML UDC PO PRN (07:17)
[2023-11-02] MEDS: Magnesium Hydroxide LIQ 30 ML UDC PO SCH (09:10)
[2023-11-02] MEDS: Polyethylene Glycol 3350 17 GM PACKET PO SCH (09:10)
[2023-11-02] MEDS: cefTRIAXone 2 gm/50 mL D5W 2 GM/50 ML BAG IV SCH (16:12)
[2023-11-02] MEDS: Senna TAB 8.6 mg TAB PO PRN (20:56)
[2023-11-03 07:59] LABS: ABS Eosinophils 0.3 10^3/uL (0.0-0.5); ABS Lymphocytes 1.1 10^3/uL (1.0-4.8); ABS Monocytes 1.2 10^3/uL (0.0-0.9); ABS Neutrophils 4.8 10^3/uL (1.5-7.6); Eosinophil % 4.1 %; Mean Corpuscular Hemoglobin 29.8 pg (27-33); Mean Corpuscular Hgb Conc 33.4 g/dL (31-36); Mean Platelet Volume 10.4 fL (7.5-11.2); Nucleated Red Blood Cells % 0.1 %/100WBC (0.0-0.8); Platelet Count 284 10^3/uL (150-450); Red Blood Count 3.71 10^6/uL (3.63-4.92); Red Cell Distribution Width 13.5 % (12-17); White Blood Count 7.4 10^3/uL (3.8-11.8)
[2023-11-03 08:30] LABS: Albumin 3.2 g/dL (3.2-5.2); Calcium 8.8 mg/dL (8.6-10.3); Creatinine, Serum 0.68 mg/dL (0.51-0.95); Globulin 3.1 g/dL (2-4); Potassium 3.9 mmol/L (3.5-5.0); Total Bilirubin 0.4 mg/dL (0.2-1.0); Total Protein 6.3 g/dL (6.4-8.9); eGFR CKD-EPI 89.1 (>60)
[2023-11-03] MEDS: Polyethylene Glycol 3350 17 GM PACKET PO SCH (11:21)
[2023-11-03] MEDS: Iohexol 300 (CONTRAST) 10 ML SDV IV ONE (15:32)
[2023-11-05 06:29] LABS: ABS Eosinophils 0.3 10^3/uL (0.0-0.5); ABS Lymphocytes 1.2 10^3/uL (1.0-4.8); ABS Monocytes 1.1 10^3/uL (0.0-0.9); ABS Neutrophils 5.1 10^3/uL (1.5-7.6); Eosinophil % 3.8 %; Hematocrit 31.5 % (35-45); Hemoglobin 10.6 g/dL (11.5-14.3); Lymphocyte % 15.8 %; Mean Corpuscular Hemoglobin 29.9 pg (27-33); Mean Corpuscular Hgb Conc 33.5 g/dL (31-36); Mean Corpuscular Volume 89.1 fL (80-97); Platelet Count 341 10^3/uL (150-450); Red Blood Count 3.54 10^6/uL (3.63-4.92); Red Cell Distribution Width 13.8 % (12-17); White Blood Count 7.7 10^3/uL (3.8-11.8)
[2023-11-05 07:05] LABS: Albumin 3.2 g/dL (3.2-5.2); Albumin/Globulin Ratio 1.1 (1-3); Calcium 8.8 mg/dL (8.6-10.3); Creatinine, Serum 0.62 mg/dL (0.51-0.95); Potassium 3.7 mmol/L (3.5-5.0); Total Bilirubin 0.3 mg/dL (0.2-1.0); Total Protein 6.2 g/dL (6.4-8.9); eGFR CKD-EPI 91.1 (>60)
[2023-11-05] MEDS ORDERED: Polyethylene Glycol 3350 17 GM PACKET PO PRN (20:39)
[2023-11-06 09:50] VITALS: BP 139/75
== END 2023-11-06 10:28 | disposition home or self-care (01) | DRG 442 ==
LOC: EDHOLD 10:08 → ED 10:08 → SUATTDRO 14:56 → MED 16:38 → SUATTDRO 11-01 19:33
PROVIDERS: ADMIT Internal Medicine; ATTEND Hospitalist

== ENCOUNTER 2024-01-11 11:00 | Observation (INO) ==
[~2024-01-11 11:00] MED LIST changes: -Acetaminophen TAB* 325 MG PO PRN; -Diazepam TAB(*) 5 MG ONE; +HYDROmorphone 1 MG/1 ML SYRINGE IV PRN; -Heparin 2 UNITS/ML IVPREMIX* 1,000 ML IV ONE; -Heparin 2 UNITS/ML IVPREMIX* 2,000 ML IV ONE; -Heparin(*) 1000 UNIT/ML 10 ML VIAL CATH LAB IV ONE; -Iohexol 350 (CONTRAST) 200 ML MDV IV ONE; -Lidocaine 1% INJ* 10 MG/ML 30 ML SDV ONE; -Midazolam* 1 MG/ML 10 ML VIAL (10 MG) ONE; -NS 0.9% 1000 ML** 1,000 ML IV SCH; +Naloxone 0.4 mg VIAL 0.4 mg/ml 1 ml VIAL IV PRN; +Ondansetron 4 mg VIAL 2 MG/ML 2 ml VIAL IV PRN; -VERAPAMIL 2.5 MG/ML 2 ML VIAL ** 5 mg/2 ml ONE; -diPHENhydraMINE PO* 25 MG ONE; -fentaNYL* 50 MCG/ML 2 ML VIAL (100 MCG VIAL) ONE; -nitroGLYCERIN DRIP* 25,000 MCG/250 ML BTL ONE
[2024-01-11] MEDS ORDERED: fentaNYL 250 mcg/5 ml 50 MCG/ML 5 ml VIAL (250 MCG) ONE (13:52)
[2024-01-11] MEDS ORDERED: Midazolam 2 mg/2 ml VIAL 1 mg/ml 2 ml VIAL (2 mg) ONE (13:52)
[2024-01-11] MEDS ORDERED: Acetaminophen IV 1 GM/100ML 1,000 MG/100 ML BAG IV ONE (13:52)
[2024-01-11] MEDS ORDERED: Rocuronium 50 mg VIAL 10 mg/ml 5 ml VIAL (50 mg) ONE (13:52)
[2024-01-11] MEDS ORDERED: Succinylcholine 200 mg VIAL 20 mg/ml 10 ml VIAL (200 mg) ONE (13:53)
[2024-01-11] MEDS ORDERED: Phenylephrine IV 10 MG/ML 1 ml VIAL ONE (14:30)
[2024-01-11] MEDS ORDERED: Dexamethasone IV 4 MG/ML VIAL 1 ml VIAL ONE (14:30)
[2024-01-11] MEDS ORDERED: Glycopyrrolate IV 0.2 MG/ML 1 ML VIAL ONE (14:30)
[2024-01-11] MEDS ORDERED: Ondansetron 4 mg VIAL 2 MG/ML 2 ml VIAL ONE (14:30)
[2024-01-11] MEDS ORDERED: fentaNYL 100 mcg/2 ml 50 MCG/ML VIAL ONE (20:17)
[2024-01-11] MEDS: fentaNYL 100 mcg/2 ml 50 MCG/ML VIAL IV PRN (20:19)
[2024-01-11 23:01] LABS: ABS Lymphocytes 0.6 10^3/uL (1.0-4.8); ABS Monocytes 0.6 10^3/uL (0.0-0.9); ABS Nucleated RBC 0.01 10^3/ul; Hematocrit 38.9 % (35-45); Lymphocyte % 4.3 %; Mean Corpuscular Hemoglobin 29.4 pg (27-33); Mean Corpuscular Hgb Conc 33.4 g/dL (31-36); Mean Platelet Volume 9.3 fL (7.5-11.2); Platelet Count 276 10^3/uL (150-450); Red Blood Count 4.42 10^6/uL (3.63-4.92); Red Cell Distribution Width 14.6 % (12-17); White Blood Count 14.2 10^3/uL (3.8-11.8)
[2024-01-11 23:23] LABS: INR 1.07 (0.83-1.13)
[2024-01-11] MEDS: ceFAZolin 1 GM ADVAN 1 GM ADDV.VIAL IVPB ONE (23:24)
[2024-01-11] MEDS: Metoclopramide 5 MG/ML VIAL (10 mg) IV SLOW PU ONE (23:24)
[2024-01-11] MEDS: Lactated Ringers 1000 ml BAG 1,000 ML IV SCH (23:25)
[2024-01-11] MEDS: Buffered Lidocaine 1% SYRIN 1 ml INTRADERM ONE (23:25)
[2024-01-11 23:55] LABS: Calcium 9.2 mg/dL (8.6-10.3); Creatinine, Serum 0.92 mg/dL (0.51-0.95); Potassium 4.9 mmol/L (3.5-5.0); eGFR CKD-EPI 63.7 (>60)
[2024-01-12 06:43] LABS: Hematocrit 37.2 % (35-45); Hemoglobin 12.3 g/dL (11.5-14.3)
[2024-01-12 06:47] VITALS: BP 126/61
== END 2024-01-12 09:45 | disposition home or self-care (01) ==
LOC: OR 11:00 → SSU 11:00 → SUATTDRO 22:23
PROVIDERS: ADMIT Hospitalist; ATTEND Student in an Organized Health Care Education/Training Program